=== PATIENT | female | born 1970 | race Caucasian/White ===

== ENCOUNTER 2019-11-04 12:10 | Emergency (ER) | payer OTHER ==
--- OUTSIDE RECORDS SUMMARY | 2019-11-04 12:19 | XMS REPORT | Continuity of Care Document ---
:1970 External Reference #:[id number] Author Name Eric Gant M.D. 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 Onset: 11/05/2011 Mixed hyperlipidemia Kurt Watkins DROP MACHINE OPERATOR Onset: 11/05/2011 Overweight Kurt Watkins DROP MACHINE OPERATOR Onset: 11/05/2011 Anxiety state Kurt Watkins DROP MACHINE OPERATOR Onset: 11/05/2011 Attention deficit hyperactivity disorder, Kurt Watkins DROP MACHINE OPERATOR Onset: predominantly inattentive type Essential hypertension Kurt Watkins DROP MACHINE OPERATOR Onset: 04/28/2015 Social History Type Date Description Comments Sex Unknown ETOH Use Occasionally consumes alcohol Tobacco Use Start: Unknown End: Patient is a former QUIT MANY YEARS AGO Unknown smoker Seat Belt/Car Seat Always uses seat belt Smoke Alarms Carbon Monoxide Detector: Yes Smoke Alarms Yes Allergies, Adverse Reactions, Alerts Active Allergies Reaction Severity Comments Date Codeine 11/01/2011 Bee Sting 11/01/2011 Medications Active Medications SIG Qnty Indications Ordering Provider Date Adderall XR tab 1 by mouth 30caps F90.0 Eric Gant, 08/22/2019 5mg Caps ER every in the M.D. 24HR morning Alprazolam 1 by mouth three 30tabs F43.21 Eric Gant, 08/15/2019 0.25mg times a day as M.D. Tablets needed Hydrocodone 1 tab by mouth 60tabs Eric Gant, 02/01/2019 Bitartrate/Acetaminop twice a day as M.D. hen needed pain 5-325mg Tablets Zyrtec Allergy 1 by mouth every 90tabs J30.9 Denis Gantwilliam Conrad, 06/15/2016 10mg day M.D. Tablets History Medications Amoxicillin 2 by mouth 40tabs J01.40 [facility] 08/01/2019 - 500mg Tablets twice a day M., M.D. 08/10/2019 Prednisone 2 tab by mouth 20tabs J01.40 [facility] 08/01/2019 - 20mg Tablets daily 4 M., M.D. 08/16/2019 days,30x3d,20x2 d,10x7d Azithromycin [facility] 6tabs J01.40 [facility] 06/29/2019 - 250mg M., M.D. 07/03/2019 Tablets Azithromycin [facility] 6tabs J01.40 [facility] 04/13/2019 - 250mg M., M.D. 04/17/2019 Tablets Medications Administered in Office Medication SIG Qnty Indications Ordering Provider Date Solu-Medrol 125MG Kurt Watkins 02/14/2009 Injection Immunizations CPT Code Status Date Vaccine Lot # [id number] Refused 05/31/2013 Flu Vaccine Vital Signs Date Vital Result Comment 09/14/2019 1:50pm BP Systolic 144 mmHg BP Diastolic 82 mmHg Height 62 inches 5'2" Weight 146.00 lb BMI (Body Mass Index) 26.7 kg/m2 Heart Rate 79 /min Respiratory Rate 18 /min 08/15/2019 1:46pm BP Systolic 160 mmHg BP Diastolic 80 mmHg Height 62 inches 5'2" Weight 146.00 lb BMI (Body Mass Index) 26.7 kg/m2 Heart Rate 89 /min Respiratory Rate 17 /min Results Description No Information Available Procedures Date Code Description Status 08/01/2019 93211 Spirometry Completed 08/01/2019 92888 Tympanometry Completed Medical Devices Description No Information Available Encounters Type Date Location Provider Dx Diagnosis Office Visit 09/14/2019 Loren Stalin, Deniswilliam Conrad, I10 Essential (primary) 1:45p M.D. 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 intermediate (current) use of opiate analgesic M25.532 Pain in left wrist M79.642 Pain in left hand H65.22 Chronic serous otitis media, left ear E78.2 Mixed hyperlipidemia E55.9 Vitamin D deficiency, unspecified R73.01 Impaired fasting glucose G47.00 Insomnia, unspecified S13.4xxD Sprain of ligaments of cervical spine, subsequent encounter J01.40 Acute pansinusitis, unspecified R09.81 Nasal congestion H66.93 Otitis media, unspecified, bilateral R06.02 Shortness of breath R05 Cough Office Visit 06/29/2019 4:45p Eric Cunningham, I10 Essential ( primary) M.D. 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 M25.532 Pain in left wrist M79.642 Pain in left hand H65.22 Chronic serous otitis media, left ear E78.2 Mixed hyperlipidemia E55.9 Vitamin D deficiency, unspecified R73.01 Impaired fasting glucose G47.00 Insomnia, unspecified R07.9 Chest pain, unspecified S13.4xxD Sprain of ligaments of cervical spine, subsequent encounter J01.40 Acute pansinusitis, unspecified R09.81 Nasal congestion Office Visit 04/13/2019 4:15p Loren Eric Gant, I10 Essential ( primary) M.DThelma 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 09/14/2019 M51.36 Other intervertebral disc degeneration, Eric Gant M.D. lumbar region 09/14/2019 M54.2 Cervicalgia Eric Gant M.D. 09/14/2019 J30.9 Allergic rhinitis, unspecified Eric Gant M.D. 09/14/2019 L20.9 Atopic dermatitis, unspecified Eric Gant M.D. 09/14/2019 M25.519 Pain in unspecified shoulder Eric Gant M.D. 09/14/2019 M79.606 Pain in leg, unspecified Eric Gant M.D. 09/14/2019 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, Eric Gant M.D. unspecified 09/14/2019 F41.9 Anxiety disorder, unspecified Eric Gant M.D. 09/14/2019 Z79.891 continuous churn buttermaker (current) use of opiate analgesic Eric Gant M.D. 09/14/2019 M25.532 Pain in left wrist Eric Gant M.D. 09/14/2019 M79.642 Pain in left hand Eric Gant M.D. 09/14/2019 H65.22 Chronic serous otitis media, left ear Eric Gant M.D. 09/14/2019 E78.2 Mixed hyperlipidemia Eric Gant M.D. 09/14/2019 E55.9 Vitamin D deficiency, unspecified Eric Gant M.D. 09/14/2019 R73.01 Impaired fasting glucose Eric Gant M.D. 09/14/2019 G47.00 Insomnia, unspecified Eric Gant M.D. 09/14/2019 S13.4xxD Sprain of ligaments of cervical spine, Eric Gant M.D. subsequent encounter 09/14/2019 J01.40 Acute pansinusitis, unspecified Eric Gant M.D. 09/14/2019 R09.81 Nasal congestion Eric Gant M.D. 09/14/2019 H66.93 Otitis media, unspecified, bilateral Eric Gant M.D. 09/14/2019 R06.02 Shortness of breath Eric Gant M.D. 09/14/2019 R05 Cough Eric Gant M.D. 09/14/2019 F43.21 Adjustment disorder with depressed mood Eric Gant M.D. 08/15/2019 I10 Essential (primary) hypertension Eric Gant M.D. 08/15/2019 M51.36 Other intervertebral disc degeneration, Eric Gant M.D. lumbar region 08/15/2019 M54.2 Cervicalgia Eric Gant M.D. 08/15/2019 J30.9 Allergic rhinitis, unspecified Eric Gant M.D. 08/15/2019 L20.9 Atopic dermatitis, unspecified Eric Gant M.D. 08/15/2019 M25.519 Pain in unspecified shoulder Eric Gant M.D. 08/15/2019 M79.606 Pain in leg, unspecified Eric Gant M.D. 08/15/2019 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, Eric Gant M.D. unspecified 08/15/2019 F41.9 Anxiety disorder, unspecified Eric Gant M.D. 08/15/2019 Z79.891 continuous churn buttermaker (current) use of opiate analgesic Eric Gant M.D. 08/15/2019 M25.532 Pain in left wrist Eric Gant M.D. 08/15/2019 M79.642 Pain in left hand Eric Gant M.D. 08/15/2019 H65.22 Chronic serous otitis media, left ear Eric Gant M.D. 08/15/2019 E78.2 Mixed hyperlipidemia Eric Gant M.D. 08/15/2019 E55.9 Vitamin D deficiency, unspecified Eric Gant M.D. 08/15/2019 R73.01 Impaired fasting glucose Eric Gant M.D. 08/15/2019 G47.00 Insomnia, unspecified Eric Gant M.D. 08/15/2019 S13.4xxD Sprain of ligaments of cervical spine, Eric Gant M.D. subsequent encounter 08/15/2019 J01.40 Acute pansinusitis, unspecified Eric Gant M.D. 08/15/2019 R09.81 Nasal congestion Eric Gant M.D. 08/15/2019 H66.93 Otitis media, unspecified, bilateral Eric Gant M.D. 08/15/2019 R06.02 Shortness of breath Eric Gant M.D. 08/15/2019 R05 Cough Eric Gant M.D. 08/15/2019 F43.21 Adjustment disorder with depressed mood Eric Gant M.D. 08/01/2019 I10 Essential (primary) hypertension Eric Gant M.D. 08/01/2019 M51.36 Other intervertebral disc degeneration, Eric Gant M.D. lumbar region 08/01/2019 M54.2 Cervicalgia Eric Gant M.D. 08/01/2019 J30.9 Allergic rhinitis, unspecified Eric Gant M.D. 08/01/2019 L20.9 Atopic dermatitis, unspecified Eric Gant M.D. 08/01/2019 M25.519 Pain in unspecified shoulder Eric Gant M.D. 08/01/2019 M79.606 Pain in leg, unspecified Eric Gant M.D. 08/01/2019 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, Eric Gant M.D. unspecified 08/01/2019 F41.9 Anxiety disorder, unspecified Eric Gant M.D. 08/01/2019 Z79.891 continuous churn buttermaker (current) use of opiate analgesic Eric Gant M.D. 08/01/2019 M25.532 Pain in left wrist Eric Gant M.D. 08/01/2019 M79.642 Pain in left hand Eric Gant M.D. 08/01/2019 H65.22 Chronic serous otitis media, left ear Eric Gant M.D. 08/01/2019 E78.2 Mixed hyperlipidemia Eric Gant M.D. 08/01/2019 E55.9 Vitamin D deficiency, unspecified Eric Gant M.D. 08/01/2019 R73.01 Impaired fasting glucose Erci Gant M.D. 08/01/2019 G47.00 Insomnia, unspecified Eric Gant M.D. 08/01/2019 S13.4xxD Sprain of ligaments of cervical spine, Eric Gant M.D. subsequent encounter 08/01/2019 J01.40 Acute pansinusitis, unspecified Eric Gant M.D. 08/01/2019 R09.81 Nasal congestion Eric Gant M.D. 08/01/2019 H66.93 Otitis media, unspecified, bilateral Eric Gant M.D. 08/01/2019 R06.02 Shortness of breath Eric Gant M.D. 08/01/2019 R05 Cough Eric Gant M.D. 06/29/2019 I10 Essential (primary) hypertension Eric Gant M.D. 06/29/2019 M51.36 Other intervertebral disc degeneration, Eric Gant M.D. lumbar region 06/29/2019 M54.2 Cervicalgia Eric Gant M.D. 06/29/2019 J30.9 Allergic rhinitis, unspecified Eric Gant M.D. 06/29/2019 L20.9 Atopic dermatitis, unspecified Eric Gant M.D. 06/29/2019 M25.519 Pain in unspecified shoulder Eric Gant M.D. 06/29/2019 M79.606 Pain in leg, unspecified Eric Gant M.D. 06/29/2019 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, Eric Gant M.D. unspecified 06/29/2019 F41.9 Anxiety disorder, unspecified Eric Gant M.D. 06/29/2019 Z79.891 continuous churn buttermaker (current) use of opiate analgesic Eric Gant M.D. 06/29/2019 M25.532 Pain in left wrist Eric Gant M.D. 06/29/2019 M79.642 Pain in left hand Eric Gant M.D. 06/29/2019 H65.22 Chronic serous otitis media, left ear Eric Gant M.D. 06/29/2019 E78.2 Mixed hyperlipidemia Eric Gant M.D. 06/29/2019 E55.9 Vitamin D deficiency, unspecified Eric Gant M.D. 06/29/2019 R73.01 Impaired fasting glucose Eric Gant M.D. 06/29/2019 G47.00 Insomnia, unspecified Eric Gant M.D. 06/29/2019 R07.9 Chest pain, unspecified Eric Gant M.D. 06/29/2019 S13.4xxD Sprain of ligaments of cervical spine, Eric Gant M.D. subsequent encounter 06/29/2019 J01.40 Acute pansinusitis, unspecified Eric Gant M.D. 06/29/2019 R09.81 Nasal congestion Eric Gant M.D. 05/25/2019 I10 Essential (primary) hypertension Eric Gant M.D. 05/25/2019 M51.36 Other intervertebral disc degeneration, Eric Gant M.D. lumbar region 05/25/2019 M54.2 Cervicalgia Eric Gant M.D. 05/25/2019 J30.9 Allergic rhinitis, unspecified Eric Gant M.D. 05/25/2019 L20.9 Atopic dermatitis, unspecified Eric Gant M.D. 05/25/2019 M25.519 Pain in unspecified shoulder Eric Gant M.D. 05/25/2019 M79.606 Pain in leg, unspecified Eric Gant M.D. 05/25/2019 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, Eric Gant M.D. unspecified 05/25/2019 F41.9 Anxiety disorder, unspecified Eric Gant M.D. 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 05/25/2019 M25.532 Pain in left wrist Eric Gant M.D. 05/25/2019 M79.642 Pain in left hand Eric Gant M.D. 05/25/2019 H65.22 Chronic serous otitis media, left ear Eric Gant M.D. 05/25/2019 E78.2 Mixed hyperlipidemia Eric Gant M.D. 05/25/2019 E55.9 Vitamin D deficiency, unspecified Eric Gant M.D. 05/25/2019 R73.01 Impaired fasting glucose Eric Gant M.D. 05/25/2019 G47.00 Insomnia, unspecified Eric Gant M.D. 05/25/2019 R07.9 Chest pain, unspecified Eric Gant M.D. 05/25/2019 S13.4xxD Sprain of ligaments of cervical spine, Eric Gant M.D. subsequent encounter 05/25/2019 J01.40 Acute pansinusitis, unspecified Eric Gant M.D. 05/25/2019 R09.81 Nasal congestion Eric Gant M.D. 04/13/2019 I10 Essential (primary) hypertension Eric Gant M.D. 04/13/2019 M51.36 Other intervertebral disc degeneration, Eric Gant M.D. lumbar region 04/13/2019 M54.2 Cervicalgia Eric Gant M.D. 04/13/2019 J30.9 Allergic rhinitis, unspecified Eric Gant M.D. 04/13/2019 L20.9 Atopic dermatitis, asherified Eric Gant M.D. 04/13/2019 M25.519 Pain in unspecified shoulder Eric Gant M.D. 04/13/2019 M79.606 Pain in leg, unspecified Eric Gant M.D. 04/13/2019 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, Eric Gant M.D. unspecified 04/13/2019 F41.9 Anxiety disorder, unspecified Eric Gant M.D. 04/13/2019 Z79.891 continuous churn buttermaker (current) use of opiate analgesic Eric Gant M.D. 04/13/2019 M25.532 Pain in left wrist Eric Gant M.D. 04/13/2019 M79.642 Pain in left hand Eric Gant M.D. 04/13/2019 H65.22 Chronic serous otitis media, left ear Eric Gant M.D. 04/13/2019 E78.2 Mixed hyperlipidemia Eric Gant M.D. 04/13/2019 E55.9 Vitamin D deficiency, unspecified Eric Gant M.D. 04/13/2019 R73.01 Impaired fasting glucose Eric Gant M.D. 04/13/2019 G47.00 Insomnia, unspecified Eric Gant M.D. 04/13/2019 R07.9 Chest pain, unspecified Eric Gant M.D. 04/13/2019 S13.4xxD Sprain of ligaments of cervical spine, Eric Gant M.D. subsequent encounter 04/13/2019 J01.40 Acute pansinusitis, unspecified Eric Gant M.D. 04/13/2019 R09.81 Nasal congestion Eric Gant M.D. Plan of Treatment 09/14/2019 - Eric Gant M.D.I10 Essential (primary) hypertensionComments: CHECK BP TIW ( PRN)DIET AND FLUID COUNSELING LOW SODIUM DIETWT LOSSF/U LABM51.36 Other intervertebral disc degeneration, lumbar regionComments:EXERCISE /HEAT /MESSAGEAVOID HEAVY LIFTING WT LOSSTYLENOL OR MOTRIN PRN DUR LPDTXXGN73.2 CervicalgiaComments:EXERCISE/HEAT /MESSAGEAVOID HEAVY LIFTING WT LOSSTYLENOL OR MOTRIN PRN DUR YKVMPOQI77.9 Allergic rhinitis, unspecifiedComments:INCREASE PO FLUID USE ANTIHISTAMINE PRN SECOND HAND SMOKING NBCWOJXIHX38.9 Atopic dermatitis, unspecifiedComments:SKIN CARE INSTRUCTIONS LOTION OR BABY OIL 2-3 APPLICATION PER DAYUSE MOISTURIZING SOAPAVOID PROLONGED WATER EXPOSUREAVOID USING HOT WATER IN XHBTBZT72.519 Pain in unspecified shoulderComments:EXERCISE/HEAT /MESSAGE AVOID HEAVY LIFTINGTYLENOL OR MOTRIN PRN DUR MSEXOHEN10.606 Pain in leg, unspecifiedComments:TYLENOL OR MOTRIN PRN EXERCISE/HEAT/MESSAGE DUR RYHWYKYF51.00 Herpesviral infection of urogenital system, unspecifiedComments:ASYMPTOMATIC @ THIS TIME BHUWILBW05.9 Anxiety disorder, unspecifiedComments:COUNCELLING AND REASSURANCE RELAXATION TECHNIQUES DISCUSSEDCOUNSELED RE: STRESSORS IN LIFE AVOID ALLENERGY/HIGH CAFFEINE DRINKS DUR SPFIXCCQ23.891 intermediate (current) use of opiate analgesicComments:REVIEWED MEDICATIONS AND DIRECTIONS WITH PATIENT DUR XJAPAWTT71.532 Pain in left wristComments:EXERCISE/HEAT/MESSAGE TYLENOL OR MOTRIN PRNAVOID HEAVY LIFTING CARLOS WRAP/SPLINT PRNELEVATE PRNM79.642 Pain in left handComments:EXERCISE/HEAT/MESSAGE TYLENOL OR MOTRIN PRNAVOID HEAVY LIFTING CARLOS WRAP PRNELEVATE PRN DUR HWXXPGQH14.22 Chronic serous otitis media, left earComments:INCREASE PO FLUID USE ANTIHISTAMINE PRN SECOND HAND SMOKING FFHWOTPPMU33.2 Mixed hyperlipidemiaComments:DIET REVIEWED CONTINUE DIETWT LOSSF/ U LAB FBWE55.9 Vitamin D deficiency, unspecifiedComments:INCREASE EXPOSURE TO SUNREVIEW OF DIETR73.01 Impaired fasting glucoseComments:F/U HGAICFS QAC AN HS PRNLOW GLUCOSE DIETG47.00 Insomnia, unspecifiedComments:COUNCELLING AND REASSURANCE RELAXATION TECHNIQUESSTRESSORS IN LIFE AVOID ALL ENERGY/HIGH CAFFEINE DRINKS DUR VEZBUWQD68.4xxD Sprain of ligaments of cervical spine, subsequent encounterComments:WRLWDBCQI25.40 Acute pansinusitis, unspecifiedComments:PANGPFUFG08.81 Nasal gzidxfihckE40.93 Otitis media, unspecified, bilateralComments:HNLWUKLHJ12.02 Shortness of duuvwlE82 CoughComments:HFSHMBNJP04.21 Adjustment disorder with depressed moodComments: COUNCELLING AND REASSURANCE RELAXATION TECHNIQUESAVOID STRESSORS IN LIFE AVOID ALL ENERGY/HIGH CAFFEINE DRINKS Functional Status Description No Information Available Mental Status Description No Information Available Referrals Description No Information Available
--- OUTSIDE RECORDS SUMMARY | 2019-11-04 12:19 | XMS REPORT | Continuity of Care Document ---
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 Problems Active Problems Provider Date Dysfunction of eustachian tube Luisa Yoo PA Onset: 11/17/2011 Social History Type Date Description Comments Sex Unknown Tobacco Use Start: Unknown Never Smoked Cigarettes ETOH Use Rarely consumes alcohol Recreational Drug Use Never Used Drugs Allergies, Adverse Reactions, Alerts Active Allergies Reaction Severity Comments Date Codeine Rash 09/23/2011 Medications Description No Active Medications Immunizations Description No Information Available Vital Signs Date Vital Result Comment 09/27/2019 1:11pm Weight 142.00 lb Height 63 inches 5'3" BMI (Body Mass Index) 25.2 kg/m2 BP Systolic 173 mmHg BP Diastolic 118 mmHg Heart Rate 74 /min O2 % BldC Oximetry 97 % Body Temperature 98.8 F Pain Level 0 03/29/2019 1:09pm Weight 144.00 lb Height 63 inches 5'3" BMI (Body Mass Index) 25.5 kg/m2 BP Systolic 177 mmHg BP Diastolic 95 mmHg Heart Rate 76 /min O2 % BldC Oximetry 96 % Body Temperature 98.4 F Pain Level 0 Results Description No Information Available Procedures Description No Information Available Medical Devices Description No Information Available Encounters Description No Information Available Assessments Description No Information Available Plan of Treatment 03/29/2019 - Cici Figueroa, NPH69.92 Unspecified Eustachian tube disorder, left earJ30.9 Allergic rhinitis, unspecified Functional Status Description No Information Available Mental Status Description No Information Available Referrals Description No Information Available
--- OUTSIDE RECORDS SUMMARY | 2019-11-04 12:19 | XMS REPORT | Continuity of Care Document ---
:1970 External Reference #:[id number] Author Name Eric Gant M.D. 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 Tablets History Medications [facility]ox[facility] 2 by mouth 40tabs J01.40 [facility] 500[facility] Tablets twice a day M., M.D. 08/10/2019 Prednisone 2 tab by mouth 20tabs J01.40 [facility] - 20mg Tablets daily 4 M., M.D. 08/16/2019 days,30x3d,20x2 d,10x7d Azithromycin z helio uad 6tabs J01.40 [facility] 06/29/2019 - 250mg M., M.D. 07/03/2019 Tablets Medications Administered in Office Medication SIG Qnty Indications Ordering Provider Date Solu-Medrol 125MG Kurt Watkins 02/14/2009 Injection Immunizations CPT Code Status Date Vaccine Lot # [id number] Refused 05/31/2013 Flu Vaccine Vital Signs Date [...] Available Procedures Date Code Description Status 08/01/2019 49634 Spirometry Completed 08/01/2019 75604 Tympanometry Completed Medical Devices Description No Information Available Encounters Type Date Location Provider Dx Diagnosis Office Visit 10/18/2019 [place] [facility] Eric Gant, I10 Essential ( primary) 10:45a M.D. 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2 Mixed hyperlipidemia E55.9 Vitamin D deficiency, unspecified R73.01 Impaired fasting glucose G47.00 Insomnia, unspecified R07.9 Chest pain, unspecified S13.4xxD Sprain of ligaments of cervical spine, subsequent encounter J01.40 Acute pansinusitis, unspecified R09.81 Nasal congestion Office Visit 05/25/2019 10:30a [place] Eric Gant, I10 Essential ( primary) M.DThelma 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 10/18/2019 M51.36 Other intervertebral disc degeneration, Eric Gant M.D. lumbar region 10/18/2019 M54.2 Cervicalgia Eric Gant M.D. 10/18/2019 J30.9 Allergic rhinitis, unspecified Eric Gant M.D. 10/18/2019 L20.9 Atopic dermatitis, unspecified Eric Gant M.D. 10/18/2019 M25.519 Pain in unspecified shoulder Eric Gant M.D. 10/18/2019 M79.606 Pain in leg, unspecified Eric Gant M.D. 10/18/2019 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, Eric Gant M.D. unspecified 10/18/2019 F41.9 Anxiety disorder, unspecified Eric Gant M.D. 10/18/2019 Z79.891 longterm (current) use of opiate analgesic Eric Gant M.D. 10/18/2019 M25.532 Pain in left wrist Eric Gant M.D. 10/18/2019 M79.642 Pain in left hand Eric Gant M.D. 10/18/2019 H65.22 Chronic serous otitis media, left ear Eric Gant M.D. 10/18/2019 E78.2 Mixed hyperlipidemia Eric Gant M.D. 10/18/2019 E55.9 Vitamin D deficiency, unspecified Eric Gant M.D. 10/18/2019 R73.01 Impaired fasting glucose Eric Gant M.D. 10/18/2019 G47.00 Insomnia, unspecified Eric Gant M.D. 10/18/2019 F43.21 Adjustment disorder with depressed mood Eric Gant M.D. 09/14/2019 I10 Essential (primary) hypertension Eric Gant [...] disorder, unspecified Eric Gant M.D. 09/14/2019 Z79.891 longterm (current) use of opiate analgesic Eric Gant [...] disorder, unspecified Eric Gant M.D. 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 08/01/2019 M25.532 Pain in left wrist Eric Gant M.D. 08/01/2019 M79.642 Pain in left hand Eric Gant M.D. 08/01/2019 H65.22 Chronic serous otitis media, left ear Eric Gant M.D. 08/01/2019 E78.2 Mixed hyperlipidemia Eric Gant M.D. 08/01/2019 E55.9 Vitamin D deficiency, unspecified Eric Gant M.D. 08/01/2019 R73.01 Impaired fasting glucose Eric Gant M.D. 08/01/2019 G47.00 Insomnia, unspecified Eric [...] disorder, unspecified Eric Gant M.D. 06/29/2019 Z79.891 longterm (current) use of opiate analgesic Eric Gant [...] disorder, unspecified Eric Gant M.D. 05/25/2019 Z79.891 longterm (current) use of opiate analgesic Eric Gant [...] 05/25/2019 R09.81 Nasal congestion Eric Gant M.D. Plan of Treatment No Information Available Functional Status Description No Information Available Mental Status Description No Information Available Referrals Description No Information Available
--- OUTSIDE RECORDS SUMMARY | 2019-11-04 12:19 | XMS REPORT | Continuity of Care Document ---
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 Capsules Prednisone 1 by mouth every 3tabs Oliver Escalona, 09/27/2019 10mg Tablets morning M.D. 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 Eustachian tube disorder, left ear J32.9 Chronic sinusitis, unspecified Assessments Date Code Description Provider 09/27/2019 H69.92 Unspecified Eustachian tube disorder, left ear Cici Figueroa NP 09/27/2019 J32.9 Chronic sinusitis, unspecified Cici Figueroa NP Plan of Treatment Future Appointment(s):10/11/2019 2:00 pm - Cici Figueroa NP at Main [facility]003/29/2019 - Cici Figueroa, NPH69.92 Unspecified Eustachian tube disorder, left earJ30.9 Allergic rhinitis, unspecified Functional Status Description No Information Available Mental Status Description No Information Available Referrals Description No Information Available
--- OUTSIDE RECORDS SUMMARY | 2019-11-04 12:19 | XMS REPORT | Continuity of Care Document ---
:1970 External Reference #:[id number] Author Name Eric Gant M.D. 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 Tablets History Medications Amoxicillin [address] [facility] - 500mg Tablets twice a day M., M.D. 08/10/2019 Prednisone 2 tab by mouth 20tabs J01.40 [facility] - 20mg Tablets daily 4 M., M.D. 08/16/2019 days,30x3d,20x2 d,10x7d Azithromycin z helio uad 6tabs J01.40 [facility] 06/29/2019 - 250mg M., M.D. 07/03/2019 Tablets Medications Administered in Office Medication SIG Qnty Indications Ordering Provider Date Solu-Medrol 125MG June Kurt FNP 02/14/2009 Injection Immunizations CPT Code Status Date Vaccine Lot # [id number] Refused 05/31/2013 Flu Vaccine Vital Signs Date [...] Available Procedures Date Code Description Status 08/01/2019 04271 Spirometry Completed 08/01/2019 11471 Tympanometry Completed Medical Devices Description No Information Available Encounters Type Date Location Provider Dx Diagnosis Office Visit 10/30/2019 Eric Cunningham., I10 Essential (primary) 1:10p M.D. 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 FPC (current) use of opiate analgesic M25.532 Pain in left wrist M79.642 Pain in left hand H65.22 Chronic serous otitis media, left ear E78.2 Mixed hyperlipidemia E55.9 Vitamin D deficiency, unspecified R73.01 Impaired fasting glucose G47.00 Insomnia, unspecified F43.21 Adjustment disorder with depressed mood F90.0 Attn-defct hyperactivity disorder, predom inattentive type Office Visit 10/18/2019 10:45a [place] [facility] Eric Gant I10 Essential ( primary) Raul Conrad 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 FPC (current) use of opiate analgesic M25.532 Pain in left wrist M79.642 Pain in left hand H65.22 Chronic serous otitis media, left ear E78.2 Mixed hyperlipidemia E55.9 Vitamin D deficiency, unspecified R73.01 Impaired fasting glucose G47.00 Insomnia, unspecified F43.21 Adjustment disorder with depressed mood Office Visit 09/14/2019 1:45p [place] Eric Gant, I10 Essential ( primary) Raul 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 FPC (current) use of opiate analgesic M25.532 Pain [...] system, unspecified F41.9 Anxiety disorder, unspecified 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 M25.532 Pain [...] system, unspecified F41.9 Anxiety disorder, unspecified 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 M25.532 Pain [...] system, unspecified F41.9 Anxiety disorder, unspecified 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 10/30/2019 M51.36 Other intervertebral disc degeneration, Eric Gant M.D. lumbar region 10/30/2019 M54.2 Cervicalgia Eric Gant M.D. 10/30/2019 J30.9 Allergic rhinitis, unspecified Eric Gant M.D. 10/30/2019 L20.9 Atopic dermatitis, unspecified Eric Gant M.D. 10/30/2019 M25.519 Pain in unspecified shoulder Eric Gant M.D. 10/30/2019 M79.606 Pain in leg, unspecified Eric Gant M.D. 10/30/2019 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, Eric Gant M.D. unspecified 10/30/2019 F41.9 Anxiety disorder, unspecified Eric Gant M.D. 10/30/2019 Z79.891 FPC (current) use of opiate analgesic Eric Gant M.D. 10/30/2019 M25.532 Pain in left wrist Eric Gant M.D. 10/30/2019 M79.642 Pain in left hand Eric Gant M.D. 10/30/2019 H65.22 Chronic serous otitis media, left ear Eric Gant M.D. 10/30/2019 E78.2 Mixed hyperlipidemia Eric Gant M.D. 10/30/2019 E55.9 Vitamin D deficiency, unspecified Eric Gant M.D. 10/30/2019 R73.01 Impaired fasting glucose Eric Gant M.D. 10/30/2019 G47.00 Insomnia, unspecified Eric Gant M.D. 10/30/2019 F43.21 Adjustment disorder with depressed mood Eric Gant M.D. 10/30/2019 F90.0 Attention-deficit hyperactivity disorder, Eric Gant M.D. predominantly inattentive type 10/18/2019 I10 Essential (primary) hypertension Eric Gant [...] disorder, unspecified Eric Gant M.D. 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 10/18/2019 G47.00 Insomnia, unspecified StalinEric fairbanks M.D. 10/18/2019 F43.21 Adjustment disorder with depressed [...] disorder, unspecified Eric Gant M.D. 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 08/01/2019 Z79.891 FPC (current) use of opiate analgesic Eric Gatn M.D. 08/01/2019 M25.532 Pain in left wrist [...] disorder, unspecified Eric Gant M.D. 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 izvfkkryaS71.532 Pain in left lfxfrY54.642 Pain in left handH65.22 Chronic serous otitis media, left earE78.2 Mixed waltodxrnqqqxxL16.9 Vitamin D deficiency, gtpodpbuaprC32.01 Impaired fasting zutarbzI36.00 Insomnia, vrzgrbilitgO60.21 Adjustment disorder with depressed moodF90.0 Attention-deficit hyperactivity disorder, predominantly inattentive typeComments:COUNCELLING AND REASSURANCEF/U DIRECTTEACHING ON TIME MANGEMENT AND IMPROVING ORGANIZATIONAL SKILLSDUR CHECKED Functional Status Description No Information Available Mental Status Description No Information Available Referrals Description No Information Available
--- NOTE | 2019-11-04 12:33 | UC ---
Hand/Wrist HPI - HPI Summary HPI Summary: 49-year-old woman comes in with a chief complaint of right wrist pain. Patient tripped and fell last night on outstretched hand injuring her right wrist. Pain is constant it's worse with movement. She is able to move her fingers and wrist and elbow. Pain does radiate into the right hand into the thumb and second and third metacarpal area. No elbow pain or shoulder pain or complaint of any other injury. She's been taking ibuprofen with minimal relief. Patient also has some hydrocodone that's prescribed by her primary care doctor for her back pain and she's been using that which also helps some. No complaint of any weakness or numbness. - History Of Current Complaint Stated Complaint: R WRIST INJ Time Seen by Provider: 11/04/19 12:23 - Allergies/Home Medications Allergies/Adverse Reactions: Allergies Allergy/AdvReac Type Severity Reaction Status Date / Time codeine Allergy Hives Verified 11/04/19 12:24 Home Medications: Home Medications HYDROcodone/ACETAMIN 5-325 MG* [[place] 5-325 TAB*] 1 tab PO BID PRN 11/04/19 [ History Confirmed 11/04/19] PMH/Surg Hx/FS Hx/Imm Hx Previously Healthy: Yes - Family History Known Family History: Positive: Non-Contributory Review of Systems All Other Systems Reviewed And Are Negative: Yes Constitutional: Positive: Negative Skin: Positive: Negative Eyes: Positive: Negative ENT: Positive: Negative Respiratory: Positive: Negative Motor: Positive: Other - see hpi Neurovascular: Positive: Negative Musculoskeletal: Positive: Other: - see hpi Neurological/Mental Status: Positive: Negative Psychological: Positive: Negative Is Patient Immunocompromised?: No Physical Exam Triage Information Reviewed: Yes Appearance: Well-Appearing, Well-Nourished, Pain Distress - mild with exam and rom of rt wrist Vital Signs Reviewed: Yes Eye Exam: Normal Eyes: Positive: Conjunctiva Clear Neck: Positive: Supple Respiratory: Positive: No respiratory distress Musculoskeletal: Positive: Other: - Patient has swelling in the right wrist over the distal radius. She is tender over the distal radius and also into the proximal first second third metacarpals and in the snuffbox. Patient is able to move her fingers and wrist that increases the pain. Normal capillary refill normal sensation distally. Elbow is nontender to palpation with full range of motion. Neurological: Positive: Alert Psychological: Positive: Age Appropriate Behavior Skin Exam: Normal Hand/Wrist Course/Dx - Course Course Of Treatment: Negative Assembler: Alfonso Santiago C, ([id number]) Research Assoc: [employer] ( [employer]) Report Date: 11/04/2019 12:43:00 Report Status: Final ====== Start of Report Content Patient Name: AZUL CRAIG Medical Record# : [id number] Ordering Physician: Roe Howard MD Acct.#: [id number] : 1970 Age: 49 Sex: F Location: [facility] Exam Date: 11/04/19 1224 ADM Status: REG ER Order Information: WRIST RIGHT 3+ VWS Accession Number: [id number] CPT: 77636 INDICATION: Distal radius/scaphoid region pain post fall last night. COMPARISON: None. TECHNIQUE: AP, lateral, oblique, and scaphoid views of the RIGHT wrist. REPORT: #. Normal articular alignment. Negative for ulnar variance. #. Negative for fracture, avascular necrosis, or focal osseous lesions. #. 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 #. Unremarkable soft tissue contours. IMPRESSION: #. No radiographic evidence for fracture. If there is high index of suspicion for an occult scaphoid fracture repeat exam in 7 - 10 days would be suggested. <Electronically signed by Alfonso Santiago MD in [place]> 11/04/19 1239 Dictated By: Alfonso Santiago MD Dictated Date/Time: 07/13 1238 Transcribed Date/Time: 11/04/19 1238 Copy to: CC:Eric Gant MD; Roe Howard MD Imaging - [facility] Imaging - [facility] Imaging - [facility] [address] [place], [place] [id number] [place] [id number] [place] [id number] ph ([phone]) ph ) ph ([phone]) End of Report Content I discussed the x-rays with the patient. No fracture seen. Patient does report her pain feels like the same kind of pain she had when she broke her left wrist. There is a possibility that patient has a fracture that is not being seen at this time and I will treat it as such. Patient placed in a thumb spica splint by nursing patient neurovascularly intact after placement of the splint. She will continue with the ibuprofen elevation eyes immobilization and then use her hydrocodone as needed. Follow-up with orthopedics. Get reevaluated sooner if needed. - Differential Dx/Diagnosis Provider Diagnosis: Right wrist pain Discharge ED - Sign-Out/Discharge Documenting (check all that apply): Patient Departure All imaging exams completed and their final reports reviewed: Yes - Discharge Plan Condition: Stable Disposition: HOME Patient Education Materials: Wrist Injury (ED) Referrals: Eric Gant MD [Primary Care Provider] - Simon Gonzalez MD [Medical Doctor] - Margaret Bedolla MD [Medical Doctor] - Additional Instructions: FOLLOW UP WITH ORTHOPEDICS. CALL TOMORROW TO ARRANGE FOLLOW UP. GET REEVALUATED IF NOT IMPROVING OR WORSE OR ANY QUESTIONS OR CONCERNS. - Billing Disposition and Condition Condition: STABLE Disposition: Home
[2019-11-04 12:37] VITALS: BP 204/113
== END 2019-11-04 13:24 | disposition home or self-care (01) ==
LOC: UCCORT 12:10
DX: M25.531 Pain in right wrist (principal); M19.031 Primary osteoarthritis, right wrist; W01.0XXA Fall on same level from slipping, tripping and stumbling without subsequent striking against object, initial encounter; Y92.9 Unspecified place or not applicable; Z88.5 Allergy status to narcotic agent
CPT/HCPCS: 99201; G0463